=== PATIENT | female | born 1995 | race Caucasian/White ===

== ENCOUNTER → 2017-03-20 | Outpatient (CLI) | payer BC, OTHER ==
--- NOTE | 2017-03-20 14:17 | DIAGNOSTIC IMAGING REPORT ---
KUB CLINICAL HISTORY: Abdominal pain. Urinary tract infection. COMPARISON STUDY: No previous studies for comparison. FINDINGS: There is no pathologic bowel dilatation. There is moderate stool throughout the colon. The renal shadows are partially obscured by bowel gas and fecal material. No urinary tract calculi are visualized. IMPRESSION: 1. No evidence of pathologic bowel dilatation 2. No urinary tract calculi identified on conventional radiographic imaging Electronically signed by: Yunior Ho M.D. 03/20/2017 2:16 PM Dictated Date/Time: 03/20/2017 2:15 PM
--- NOTE | 2017-03-20 14:20 | DIAGNOSTIC IMAGING REPORT ---
EXAMINATION: RENAL ULTRASOUND CLINICAL HISTORY: Urinary tract infection DYSURIA COMPARISON STUDY: None FINDINGS: The right kidney measures 10.6 cm. The left kidney measures 7.5 cm. There is no evidence of hydronephrosis. There are no renal masses. No bladder abnormalities are visualized. Bilateral ureteral jets were visualized. IMPRESSION : Normal renal ultrasound. Electronically signed by: Yunior Ho M.D. 03/20/2017 2:19 PM Dictated Date/Time: 03/20/2017 2:16 PM
== END | disposition home or self-care (01) ==
LOC: C.ULTRBC 13:37
PROVIDERS: ATTEND Nurse Practitioner Adult Health
DX: N39.0 Urinary tract infection, site not specified (principal)

== ENCOUNTER → 2017-03-20 | Outpatient (CLI) | payer BC | END | disposition home or self-care (01) | LOC: C.LABSPEC 17:53 | PROVIDERS: ATTEND Nurse Practitioner Adult Health | DX: N39.0 Urinary tract infection, site not specified (principal) ==